=== PATIENT | male | born 1960 | race Hispanic/Latino ===

== ENCOUNTER 2016-06-12 17:44 | Emergency (ER) | payer SELFPAY ==
[~2016-06-12] VITALS: Ht 172.7 cm; Wt 77.3 kg
[2016-06-12 19:20] LABS: HEMOGLOBIN 13.8 g/dl (14.0-18.0); IMMATURE GRANULOCYTES 0.6 % (0.0-1.0); MEAN CELL VOLUME 90.7 fL CALC (80.0-100.0); MEAN CORPUSCULAR HGB 32.9 pG CALC (26.0-32.0); MEAN CORPUSCULAR HGB CONC 36.3 g/L CALC (32.0-36.0); NEUT# 7.4 thou/uL (1.82-7.42); RED BLOOD COUNT 4.19 mill/uL (4.70-6.10); RED CELL DISTRI WIDTH 11.7 % (11.5-15.5)
[2016-06-12 19:37] LABS: URINE BILIRUBIN - DIPSTICK NEGATIVE (NEGATIVE); URINE BLOOD DIPSTICK SMALL (NEGATIVE); URINE CLARITY CLEAR; URINE COLOR YELLOW; URINE GLUCOSE - DIPSTICK >=1000 mg/dL (NEGATIVE); URINE KETONE NEGATIVE (NEGATIVE); URINE LEUK ESTERASE NEGATIVE (NEGATIVE); URINE NITRITE - DIPSTICK NEGATIVE (Negative); URINE PROTEIN - DIPSTICK 100 mg/dL (NEG-TRACE); URINE UROBILINOGEN - DIPSTICK 0.2 E.U./dL (0.2)
[2016-06-12 19:38] LABS: ALBUMIN 3.7 g/dL (3.2-5.0); ALKALINE PHOSPHATASE 165 u/l (38-126); ANION GAP 15 (6-22 (CALC)); BILIRUBIN, TOTAL 0.6 mg/dL (0.0-1.4); BUN 25 mg/dL (9-20); BUN/CREATININE RATIO 23 (12-20 (CALC)); CARBON DIOXIDE 26 mmol/l (22-30); CHLORIDE 96 mmol/l (95-108); CREATININE 1.1 mg/dL (0.7-1.3); GFR > 60 ML/MIN (>=60 (CALC)); GFR FOR AFR.AMER. > 60 ML/MIN (>=60 (CALC)); GLUCOSE 337 mg/dL (75-110); POTASSIUM 4.5 mmol/l (3.5-5.1); SGOT/AST 70 u/l (17-59); SGPT/ALT 96 u/l (21-72); SODIUM 132 mmol/l (137-146); TOTAL PROTEIN 7.8 g/dL (6.3-8.2)
[2016-06-12 19:48] LABS: URINE WBC 0-2 WBC/hpf (0-5)
[2016-06-12 20:54] VITALS: BP 209/128
== END 2016-06-12 20:55 | disposition short-term general hospital (02) | DRG 868 ==
LOC: ED 17:44
PROVIDERS: Emergency Medicine
PROC: 0H9FXZZ Drainage of Right Hand Skin, External Approach (ICD-10-PCS; principal; 2016-06-12)
DX: A48.0 Gas gangrene (principal); L02.511 Cutaneous abscess of right hand; B95.7 Other staphylococcus as the cause of diseases classified elsewhere; R22.31 Localized swelling, mass and lump, right upper limb; R50.9 Fever, unspecified
CPT/HCPCS: J2540

== ENCOUNTER 2017-04-26 19:14 | Inpatient (IN) | payer SELFPAY ==
[~2017-04-26] VITALS: Ht 172.7 cm; Wt 77.0 kg
--- NOTE | 2017-04-26 19:33 | NUR ---
LABETALOL 10 MG IVP PER MD ORDER. BP 222/113 HR 89.
--- NOTE | 2017-04-26 19:36 | NUR ---
PT BROUGHT STRAIGHT BACK. AMBULATED. MD NOTIFIED OF PTS STATUS. MD VELA GAVE A VERBAL ORDER FOR 20MG LABETOL FOR HTN. EKG COMPLETED AND SHOWN TO MD. PT A&Ox4. NO DROP IN FACE. EQUAL STRENGTH BILATEALLY UPPER & LOWER.
--- NOTE | 2017-04-26 19:40 | NUR ---
BP NOW 161/80.
--- NOTE | 2017-04-26 19:50 | NUR ---
PT RESTING. A/O ANUM. NABIL. DENIES ANY NUMBNESS/TINGLING AT THIS TIME. PT STATES THAT IT STARTED AROUND 9 AM. PT EDUCATED ON IMMEDIATE TREATMENT OF STROKE S/S FOR FURTURE EVENTS.
[2017-04-26 20:43] LABS: HEMATOCRIT 41.9 % (39.0-50.0); HEMOGLOBIN 15.4 g/dl (14.0-18.0); IMMATURE GRANULOCYTES 0.5 % (0.0-1.0); MEAN CELL VOLUME 90.3 fL CALC (80.0-100.0); MEAN CORPUSCULAR HGB 33.2 pG CALC (26.0-32.0); MEAN CORPUSCULAR HGB CONC 36.8 g/L CALC (32.0-36.0); NEUT# 3.94 thou/uL (1.82-7.42); RED BLOOD COUNT 4.64 mill/uL (4.70-6.10)
[2017-04-26 20:50] LABS: ACT PARTIAL THROMBO TIME 25.6 SECONDS (20.0-32.5); INTERNATIONAL NORMALIZED RATIO 0.9 RATIO (0.7-1.3); PROTHROMBIN TIME 9.8 SECONDS (9.0-12.5)
[2017-04-26 21:09] LABS: ALBUMIN 3.7 g/dL (3.2-5.0); BILIRUBIN, TOTAL 0.3 mg/dL (0.0-1.4); CREATININE 1.6 mg/dL (0.7-1.3); TOTAL PROTEIN 7.1 g/dL (6.3-8.2)
--- NOTE | 2017-04-26 21:25 | NUR ---
TO CT VIA STRETCHER WITH PAYMENT ANALYST.
--- NOTE | 2017-04-26 21:47 | NUR ---
PT RETURNED FROM CT VIA STRETCHER. NO C/O.
--- NOTE | 2017-04-26 22:09 | NUR ---
AT BEDSIDE TO DISCUSS RESULTS.
--- NOTE | 2017-04-26 23:22 | NUR ---
BLOOD SUGAR NOW 381
--- NOTE | 2017-04-26 23:34 | NUR ---
DR OVALLE NOTIFIED OF BLOOD SUGAR. REPORT CALLED TO FLOOR. BROWN
[2017-04-27] VITALS (10 sets, daily range): BP systolic 127–170; BP diastolic 71–100
--- NOTE | 2017-04-27 00:10 | NUR ---
PT TRANSPORTED FROM ER VIA STRETCHER TO ROOM IN STABLE CONDITION. TRANSPORTED BY MELITON CORRIGAN. PT AMBULATED TO ROOM FROM [facility] IN [facility]. WT AND VS OBTAINED, ASSESSMENT CHARTED. PT DESCRIBES COMING INTO ER THIS MORNING WITH NUMBNESS TO LEFT SIDE. STATES SYMPTOMS HAVE SINCE SUBSIDED. HUMAN INTELLIGENCE ON. PT ORIENTED TO ROOM AND CALL LIGHT. EXPLAINED NEEDED URINE SAMPLE. WATER AND ICE GIVEN. BED IN LOW POSITION, CALL LIGHT IN REACH. WILL CONTINUE TO MONITOR.
--- NOTE | 2017-04-27 00:18 | NUR ---
TO FLOOR WITHOUT INCIDENT. PT REMAINS ALERT/ORIENTED. FERRER. GRASP EQUAL AND STRONG.
--- NOTE | 2017-04-27 01:10 | NUR ---
ACCOUNTING METHODS ANALYST CALLED TO SAY PT OFF TELE. WENT TO CHECK ON PATIENT AND FOUND TELE ON BED AND PATIENT HAD GOTTEN IN SHOWER. CALL TO ACCOUNTING METHODS ANALYST TO INFORM.
--- NOTE | 2017-04-27 01:30 | NUR ---
PT OUT OF SHOWER. HEAD OF DESIGN REAPPLIED, IV LOOSE FROM SHOWER, CLEAN DRY TEGADERM APPLIED. IV FLUSHED WELL AND BLOOD RETURN NOTED.
[2017-04-27 01:32] LABS: URINE BILIRUBIN - DIPSTICK NEGATIVE (NEGATIVE); URINE BLOOD DIPSTICK NEGATIVE (NEGATIVE); URINE COLOR YELLOW; URINE GLUCOSE - DIPSTICK >=1000 mg/dL (NEGATIVE); URINE KETONE TRACE mg/dL (NEGATIVE); URINE LEUK ESTERASE NEGATIVE (NEGATIVE); URINE NITRITE - DIPSTICK NEGATIVE (Negative); URINE PH 5.5 (4.5-8.0); URINE PROTEIN - DIPSTICK >=300 mg/dL (NEG-TRACE); URINE SPECIFIC GRAVITY >=1.030; URINE UROBILINOGEN - DIPSTICK 0.2 E.U./dL (0.2)
[2017-04-27 01:33] LABS: URINE CLARITY CLEAR
[2017-04-27 01:45] LABS: URINE BACTERIA FEW hpf; URINE COARSE GRANULAR CAST FEW lpf; URINE RBC 0-2 RBC/hpf (0-5); URINE WBC 0-2 WBC/hpf (0-5)
--- NOTE | 2017-04-27 02:00 | NUR ---
PT TURNED OFF LIGHTS AND ROLLED ONTO SIDE TO GET REST. CALL LIGHT IN REACH, ADVISED TO CALL IF NEEDED. WILL CONTINUE TO MONITOR.
--- NOTE | 2017-04-27 04:30 | NUR ---
PT LAYING DOWN, EYES OPEN EASILY UPON ENTRANCE TO ROOM. DENIES PAIN OR NEEDS AT THIS TIME. CALL LIGHT IN REACH.
--- NOTE | 2017-04-27 08:00 | NUR ---
PT IN HIGH FELDMAN POSITION; TOLERATED BREAKFAST WELL; PT DENIES PAIN; TELE MONITOR IN PLACE, SR 77; PT DENIES PAIN; PT C/O NUMBNESS TO COMPLETE LEFT SIDE OF BODY, NO CHANGE IN NEURO ASSESSMENT; PT ORIENTED TO ROOM AND CALL SYSTEM; CALL AGUAYO WITHIN REACH; WILL CONTINUE TO MONITOR.
[2017-04-27 14:39] LABS: HEMATOCRIT 37.7 % (39.0-50.0); HEMOGLOBIN 13.9 g/dl (14.0-18.0); IMMATURE GRANULOCYTES 0.4 % (0.0-1.0); MEAN CORPUSCULAR HGB 33.2 pG CALC (26.0-32.0); MEAN CORPUSCULAR HGB CONC 36.9 g/L CALC (32.0-36.0); NEUT# 2.97 thou/uL (1.82-7.42); RED BLOOD COUNT 4.19 mill/uL (4.70-6.10); RED CELL DISTRI WIDTH 11.9 % (11.5-15.5)
--- NOTE | 2017-04-27 14:43 | NUR ---
DR. LEONG IN TO SEE PT; PLAN OF CARE DISCUSSED
[2017-04-27 15:09] LABS: ANION GAP 13 (6-22 (CALC)); BUN 18 mg/dL (9-20); BUN/CREATININE RATIO 17 (12-20 (CALC)); CARBON DIOXIDE 24 mmol/l (22-30); CHLORIDE 102 mmol/l (95-108); CREATININE 1.1 mg/dL (0.7-1.3); GFR > 60 ML/MIN (>=60 (CALC)); GFR FOR AFR.AMER. > 60 ML/MIN (>=60 (CALC)); POTASSIUM 4.7 mmol/l (3.5-5.1); SODIUM 134 mmol/l (137-146)
--- NOTE | 2017-04-27 15:45 | NUR ---
PT WATCHING TV; IVF STARTED PER ORDERS; BP 165/96, MEDICATED WITH HYDRALAZINE 10 MG IV PER MD ORDER; CALL AGUAYO WITHIN REACH; WILL CONTINUE TO MONITOR.
--- NOTE | 2017-04-27 16:17 | NUR ---
DR. LEONG NOTIFIED OF CT BRAIN RESULTS
--- NOTE | 2017-04-27 17:55 | NUR ---
PT C/O MANUAL BP 178/100; MD NOTIFIED; PT MEDICATED ORDERED; CALL AGUAYO WITHIN REACH; WILL CONTINUE TO MONITOR.
--- NOTE | 2017-04-27 19:40 | NUR ---
REPORT RECIEVED; PT RESTING IN BED. PT DENIES ANY PAIN OR DISCOMFORT. IV RAC PATENT. SAFETY PRECAUTIONS REINFORCED. CALL LIGHT WITHIN REACH.
--- NOTE | 2017-04-27 20:10 | NUR ---
PT ALERT AND ORIENTED. HAND GRASP EQUAL;STRONG BILAT. RESP EVEN AND UNLABORED; NO DISTRESS NOTED. TELE IN PLACE. ABD SOFT; ACTIVE BOWEL SOUNDS. PEDAL PULSES PALPATED BILAT. IV RAC PATENT; NO REDNESS OR EDEMA NOTED. SAFETY PRECAUTIONS REINFROCED. FREQUENT ROUNDS MADE. PT DENIES ANY PAIN OR DISCOMFORT. CALL LIGHT WITHIN REACH.
--- NOTE | 2017-04-27 20:25 | NUR ---
DR NOTIFIED OF BP; 170/100, HR; 81. NEW ORDER RECIEVED.
--- NOTE | 2017-04-27 20:48 | NUR ---
ORDER CLARIFICATION WITH DR; NEW ORDER RECIEVED.
[2017-04-28] VITALS (9 sets, daily range): BP systolic 139–176; BP diastolic 75–107
--- NOTE | 2017-04-28 00:30 | NUR ---
PT WOKE FOR VITALS. RESP EVEN AND UNLABORED. PT DENIES ANY PAIN OR DISCOMFORT. TELE IN PLACE. NO DISTRESS NOTED. IV PATENT. CALL LIGHT WITHIN REACH.
--- NOTE | 2017-04-28 04:05 | NUR ---
RESP EVEN AND UNLABORED; NO DISTRESS NOTED. TELE IN PLACE. IV PATENT. ASSESSMENT UNCHANGED. CALL LIGHT WITHIN REACH.
[2017-04-28 05:01] LABS: HEMATOCRIT 37.9 % (39.0-50.0); HEMOGLOBIN 13.8 g/dl (14.0-18.0); IMMATURE GRANULOCYTES 0.5 % (0.0-1.0); MEAN CELL VOLUME 90.2 fL CALC (80.0-100.0); MEAN CORPUSCULAR HGB 32.9 pG CALC (26.0-32.0); MEAN CORPUSCULAR HGB CONC 36.4 g/L CALC (32.0-36.0); NEUT# 3.68 thou/uL (1.82-7.42); RED BLOOD COUNT 4.2 mill/uL (4.70-6.10)
[2017-04-28 05:34] LABS: ANION GAP 12 (6-22 (CALC)); BUN 15 mg/dL (9-20); BUN/CREATININE RATIO 16 (12-20 (CALC)); CARBON DIOXIDE 24 mmol/l (22-30); CHLORIDE 106 mmol/l (95-108); GFR > 60 ML/MIN (>=60 (CALC)); GFR FOR AFR.AMER. > 60 ML/MIN (>=60 (CALC)); POTASSIUM 4.2 mmol/l (3.5-5.1); SODIUM 138 mmol/l (137-146)
--- NOTE | 2017-04-28 11:37 | NUR ---
DR. LEONG IN TO SEE PT; PLAN OF CARE DISCUSSED
--- NOTE | 2017-04-28 16:53 | NUR ---
PT WATCHING TV; NO COMPLAINTS VOICED; TELE MONITOR IN PLACE; CALL AGUAYO WITHIN REACH; WILL CONTINUE TO MONITOR.
--- NOTE | 2017-04-28 20:00 | NUR ---
BESIDE REPORT RECEIVED FROM MELITON BRENNER. PT SITTING UP IN BED WATCHING TV. ALERT AND ORIENTED. DENIES PAIN CURRENTLY. RESPIRATIONS EVEN AND UNLABORED ON ROOM AIR. TELE IN PLACE. INITIAL BLOOD PRESSURE THIS SHIFT IS 176/107. APRESOLINE GIVEN PER PRN ORDER WITH F/U BP OF 168/96-90. WILL CONTINUE TO MONITOR. PLAN OF CARE DISCUSSED. PT ENCOURAGED TO VERBALIZE CONCERS. STATES UNDERSTANDING. SAFETY MEASURES IN PLACE. CALL LIGHT WITHIN REACH.
--- NOTE | 2017-04-28 23:47 | NUR ---
BLOOD PRESSURE INCREASED AGAIN TO 182/100. NEW ORDER FOR APRESOLINE NOW AND INCREASE FREQUENCY TO EVERY 4 HOURS PRN. MIDNIGHT BP IS 139/75. PT RESTING IN BED COMFORTABLY. RESTORIL GIVEN AT HS. PT HAS NO REQUESTS AT THIS TIME. SAFETY MEASURES IN PLACE. CALL LIGHT WITHIN REACH.
[2017-04-29] VITALS (9 sets, daily range): BP systolic 147–182; BP diastolic 78–101
--- NOTE | 2017-04-29 05:05 | NUR ---
BLOOD PRESSURE REMAINS STABLE SINCE LAST BP MEDICATION. DENIES PAIN. INDEPEDENT IN ROOM. PT USES CALL LIGHT PRN FOR ASSISTANCE. HAS NO REQUESTS AT THIS TIME. CALL LIGHT WITHIN REACH.
--- NOTE | 2017-04-29 07:00 | NUR ---
RECEIVED BEDSIDE REPORT FROM BARRINGTON COELHO. RESTING IN HIGH FOWLERS WATCHING TV. RESPS EVEN AND UNLABORED ON ROOM AIR, TELE MONITOR IN PLACE. #22 LFA INFUSING WIHTOUT DIFFICULTY, SITE APPEARS HEALTHY. DENIES PAIN OR DISCOMFORT. PLAN OF CARE DISCUSSED. SAFETY PRECAUTIONS REINFORCED. BED IN LOWEST POSITION WITH WHEELS LOCKED. CALL LIGHT WITHIN REACH. ENCOURAGED PT TO CALL FOR ANY NEEDS.
--- NOTE | 2017-04-29 08:30 | NUR ---
PATIENT IS ALERT AND ORIENTED X3. PUPILS ARE BRISK. FACE SYMMETRICAL. HEART SOUNDS AND RHYTHM ARE REGULAR. BOWEL SOUNDS ARE ACTIVE. RADIAL PULSES ARE STRONG. CAPILLARY REFILL <3. PEDAL PULSES ARE STRONG. PATIENT STATES HE HAS NUMBNESS ON LEFT SIDE, TACTILE SENSATION SLIGHTLY IMPAIRED TO LEFT SIDE FACE, ARM AND LEGS UPON ASSESSMENT. PATIENT HAS STRONG SHIPPING SPECIALIST BILATERAL AND ABLE TO LIFT BOTH LEGS AGAINST FORCE.
--- NOTE | 2017-04-29 09:00 | NUR ---
TO RADIOLOGY IN STABLE CONDITION VIA WHEELCHAIR ACCOMPANIED BY VOLUNTEER.
--- NOTE | 2017-04-29 10:00 | NUR ---
RETURNED FROM RADIOLOGY VIA WHEELCHAIR ACCOMPANIED BY VOLUNTEER.
[2017-04-29 10:52] LABS: HEMATOCRIT 40.1 % (39.0-50.0); HEMOGLOBIN 14.7 g/dl (14.0-18.0); IMMATURE GRANULOCYTES 0.3 % (0.0-1.0); MEAN CELL VOLUME 89.9 fL CALC (80.0-100.0); MEAN CORPUSCULAR HGB CONC 36.7 g/L CALC (32.0-36.0); NEUT# 4.11 thou/uL (1.82-7.42); RED BLOOD COUNT 4.46 mill/uL (4.70-6.10)
[2017-04-29 11:20] LABS: ANION GAP 13 (6-22 (CALC)); BUN 12 mg/dL (9-20); BUN/CREATININE RATIO 14 (12-20 (CALC)); CARBON DIOXIDE 22 mmol/l (22-30); CHLORIDE 105 mmol/l (95-108); CREATININE 0.9 mg/dL (0.7-1.3); GFR > 60 ML/MIN (>=60 (CALC)); GFR FOR AFR.AMER. > 60 ML/MIN (>=60 (CALC)); MAGNESIUM 1.6 mg/dL (1.6-2.3); POTASSIUM 4.4 mmol/l (3.5-5.1); SODIUM 136 mmol/l (137-146)
--- NOTE | 2017-04-29 12:50 | NUR ---
DR ENGLE IN WITH PT, NEW ORDERS RECEIVED.
--- NOTE | 2017-04-29 13:45 | NUR ---
AMBULATING IN HALLWAY WITH STEADY GAIT. TOLERATING ACTIVITY WITHOUT DIFFICULTY.
--- NOTE | 2017-04-29 16:05 | NUR ---
AMBULATING IN HALLWAY ACCOMPANIED BY PHYSICAL THERAPY.
--- NOTE | 2017-04-29 16:47 | NUR ---
RESTING IN SEMI FOWLERS, RESPS EVEN AND UNLABORED ON ROOM AIR, TELE MONITOR IN PLACE. DENIES PAIN OR DISCOMFORT. MEDICATED WITH HYDRALAZINE IVP FOR BP 182/98 WITH HEART RATE 90. CALL STACI BREWSTER. WILL CONTINUE TO MONITOR.
--- NOTE | 2017-04-29 18:17 | NUR ---
TO ULTRASOUND IN STABLE CONDITION VIA WHEELCHAIR ACCOMPANIED BY ISAAC HENDRICKSON.
--- NOTE | 2017-04-29 19:06 | NUR ---
RETURNED FROM RADIOLOGY VIA WHEELCHAIR ACCOMPANIED BY CIARA HENDRICKSON. AMBULATED TO BED WITH STEADY GAIT. RESPS EVEN AND UNLABORED ON ROOM AIR, TELE MONITOR IN PLACE. BED IN LOWEST POSITION WITH WHEELS LOCKED. CALL LIGHT WITHIN REACH. WILL CONTINUE TO MONITOR.
--- NOTE | 2017-04-29 19:20 | NUR ---
REPORT RECEIVED FROM MELITON KIDD;PT RETURNING FROM ECHO AT THIS TIME;PT TRANFERRED FROM WC WITH STEADY GAIT;INTRODUCED SELF TO PT AND POC DISCUSSED;PT ENCOURAGED TO CALL FOR ASSISTANCE IF NEEDED;CALL LIGHT IN REACH;WILL CONTINUE TO MONITOR
--- NOTE | 2017-04-29 21:20 | NUR ---
PT RESTING IN BED WATCHING TV;A&O X3;ASSESSMENT COMPLETED;RESPIRATIONS EVEN AND UNLABORED ON RA;CLEAR LUNG SOUNDS;ABDOMEN SOFT ON PALPATION;STRONG PEDAL PULSES;SKIN INTACT;#22G TO LEFT FOREARM FLUSHED AND PATENT,SITE APPAERS HEALTHY;SOME LEFT SIDED WEAKNESS PRESENT R/T HX OF STROKE;PERRLA;PRN RESTORIL 15MG TO BE GIVEN PER PT REQUEST;TELE MONITOR IN PLACE;SAFETY PRECAUTIONS REINFORCED WITH BED IN THE LOWEST POSITION;CALL LIGHT IN REACH;WILL CONTINUE TO MONITOR
--- NOTE | 2017-04-29 21:40 | NUR ---
HYDRALAZINE 10MG IVP ADMINISTERED BY MELITON FRAZIER FOR A MANUAL BP OF 172/96 HR 86,WILL MONITOR FOR EFFECTIVENESS
--- NOTE | 2017-04-30 00:10 | NUR ---
PT APPEARS TO BE SLEEPING IN SUPINE POSITION;WOKE PT TO ADMINISTER SCHEDULED MEDICATION;PT VOICES NO COMPLAINTS OF PAIN;TELE MONITOR IN PLACE;SCHEDULED LOPRESSOR GIVEN AT THIS TIME;BP 152/87 HR 99;WILL CONTINUE TO MONITOR
[2017-04-30 00:56] VITALS: BP 152/87
--- NOTE | 2017-04-30 04:55 | NUR ---
PT APPEARS TO BE SLEEPING IN SUPINE POSITION WITH EYES CLOSED,WAKES TO VERBAL STIMULI;VS OBTAINED;CURRENT BP 139/84 HR 79;TELE MONITOR IN PLACE;RESPIRATIONS EVEN AND UNLABORED;PT DENIES ANY NEEDS AT THIS TIME;CALL LIGHT IN REACH;WILL CONTINUE TO MONITOR
[2017-04-30 04:56] VITALS: BP 139/84
[2017-04-30 05:46] LABS: HEMATOCRIT 39.7 % (39.0-50.0); HEMOGLOBIN 14.5 g/dl (14.0-18.0); IMMATURE GRANULOCYTES 0.4 % (0.0-1.0); MEAN CELL VOLUME 90.2 fL CALC (80.0-100.0); MEAN CORPUSCULAR HGB CONC 36.5 g/L CALC (32.0-36.0); NEUT# 4.18 thou/uL (1.82-7.42); RED BLOOD COUNT 4.4 mill/uL (4.70-6.10); RED CELL DISTRI WIDTH 11.9 % (11.5-15.5)
[2017-04-30 06:02] LABS: ANION GAP 14 (6-22 (CALC)); BUN 16 mg/dL (9-20); BUN/CREATININE RATIO 16 (12-20 (CALC)); CALCULATED LDLCHOLESTEROL 41 mg/dL (62-129 (CALC)); CARBON DIOXIDE 23 mmol/l (22-30); CHLORIDE 105 mmol/l (95-108); CHOLESTEROL HDL RATIO 2.5 (<4.4 (CALC)); GFR > 60 ML/MIN (>=60 (CALC)); GFR FOR AFR.AMER. > 60 ML/MIN (>=60 (CALC)); HDL CHOLESTEROL 46 mg/dL (>=40); MAGNESIUM 1.6 mg/dL (1.6-2.3); POTASSIUM 4.2 mmol/l (3.5-5.1); SODIUM 138 mmol/l (137-146); TOTAL CHOLESTEROL 116 mg/dl (0-199); TOTAL TRIGLYCERIDES 144 mg/dl (30-149); VLDL CHOLESTROL 29 mg/dl (8-62 (CALC))
--- NOTE | 2017-04-30 07:00 | NUR ---
RECEIVED BEDSIDE REPORT FROM RUBINA CHEATHAM. RESTING IN SEMI FOWLERS WATCHING TV. RESPS EVEN AND UNLABORED ON ROOM AIR, TELE MONITOR IN PLACE. DENIES PAIN OR DISCOMFORT. PLAN OF CARE DISCUSSED. SAFETY PRECAUTIONS REINFORCED. BED IN LOWEST POSITION WITH WHEELS LOCKED. CALL LIGHT WITHIN REACH. ENCOURAGED PT TO CALL FOR ANY NEEDS.
[2017-04-30 07:49] VITALS: BP 172/94
[2017-04-30 07:59] VITALS: BP 172/94
--- NOTE | 2017-04-30 09:00 | NUR ---
DR ENGLE IN WITH PT, NEW ORDERS RECEIVED.
[2017-04-30] MEDS ORDERED: METFORMIN1000 MG PO (09:35)
[2017-04-30] MEDS ORDERED: LOPRESSOR25 MG PO (09:35)
[2017-04-30] MEDS ORDERED: ZESTRIL40 MG PO (09:35)
[2017-04-30] MEDS ORDERED: LIPITOR80 M1 PO (09:35)
[2017-04-30] MEDS ORDERED: ADLT ASA LOW81 MG PO (09:35)
[2017-04-30] MEDS ORDERED: AMLODIPINE BESYL5 MG PO (09:35)
[2017-04-30] MEDS ORDERED: AMARYL2 MG PO (09:40)
--- NOTE | 2017-04-30 12:00 | NUR ---
RESTING IN SEMI FOWLERS, RESPS EVEN AND UNLABORED ON ROOM AIR, TELE MONITOR IN PLACE. DENIES PAIN OR DISCOMFORT. CALL LIGHT WITHIN REACH. WILL CONTINUE TO MONITOR.
--- NOTE | 2017-04-30 13:05 | NUR ---
IV site discontinued, cath intact. No edema , no redness, voices no discomfort.
--- NOTE | 2017-04-30 13:10 | NUR ---
Discharge instructions given. Patient verbalizes understanding of same. Discharged in stable condition via Wheelchair to Home with family. All belongings sent with pt.
== END 2017-04-30 13:11 | disposition home or self-care (01) | DRG 69 ==
LOC: ED 19:14 → ED-I 22:54 → ED 23:13 → MS2 23:14
PROVIDERS: Emergency Medicine; Nurse Practitioner Family; ADMIT Internal Medicine; ATTEND Internal Medicine
DX: G45.9 Transient cerebral ischemic attack, unspecified (principal); E11.65 Type 2 diabetes mellitus with hyperglycemia; I69.954 Hemiplegia and hemiparesis following unspecified cerebrovascular disease affecting left non-dominant side; F17.210 Nicotine dependence, cigarettes, uncomplicated; I16.0 Hypertensive urgency; I10 Essential (primary) hypertension; Z91.14 Patient's other noncompliance with medication regimen

== ENCOUNTER 2017-06-25 06:59 | Emergency (ER) | payer SELFPAY ==
[~2017-06-25] VITALS: Ht 172.7 cm; Wt 82.0 kg
[~2017-06-25 06:59] MED LIST: ADLT ASA LOW81 MG PO; AMARYL2 MG PO; AMLODIPINE BESYL5 MG PO; LIPITOR80 M1 PO; LOPRESSOR25 MG PO; METFORMIN1000 MG PO; ZESTRIL40 MG PO
[2017-06-25 07:44] LABS: HEMATOCRIT 42.1 % (39.0-50.0); IMMATURE GRANULOCYTES 0.5 % (0.0-1.0); MEAN CELL VOLUME 90.1 fL CALC (80.0-100.0); MEAN CORPUSCULAR HGB 32.1 pG CALC (26.0-32.0); MEAN CORPUSCULAR HGB CONC 35.6 g/L CALC (32.0-36.0); NEUT# 7.16 thou/uL (1.82-7.42); RED BLOOD COUNT 4.67 mill/uL (4.70-6.10); RED CELL DISTRI WIDTH 12.7 % (11.5-15.5)
[2017-06-25 08:05] LABS: ALBUMIN 3.7 g/dL (3.2-5.0); ALKALINE PHOSPHATASE 86 u/l (38-126); ANION GAP 17 (6-22 (CALC)); BILIRUBIN, TOTAL 0.6 mg/dL (0.0-1.4); BUN 21 mg/dL (9-20); BUN/CREATININE RATIO 19 (12-20 (CALC)); CARBON DIOXIDE 24 mmol/l (22-30); CHLORIDE 104 mmol/l (95-108); CREATININE 1.1 mg/dL (0.7-1.3); GFR > 60 ML/MIN (>=60 (CALC)); GFR FOR AFR.AMER. > 60 ML/MIN (>=60 (CALC)); SGOT/AST 54 u/l (17-59); SGPT/ALT 77 u/l (21-72); SODIUM 141 mmol/l (137-146); TOTAL PROTEIN 7.6 g/dL (6.3-8.2)
[2017-06-25 08:09] LABS: INTERNATIONAL NORMALIZED RATIO 0.9 RATIO (0.7-1.3); PROTHROMBIN TIME 10.3 SECONDS (9.0-12.5)
[2017-06-25 08:15] LABS: MYOGLOBIN 46 ng/mL (0 - 121)
[2017-06-25 09:25] VITALS: BP 161/87
== END 2017-06-25 09:25 | disposition short-term general hospital (02) | DRG 65 ==
LOC: ED 06:59
PROVIDERS: Emergency Medicine
DX: I63.9 Cerebral infarction, unspecified (principal); G81.94 Hemiplegia, unspecified affecting left nondominant side; I10 Essential (primary) hypertension; E11.9 Type 2 diabetes mellitus without complications; F17.210 Nicotine dependence, cigarettes, uncomplicated; H53.462 Homonymous bilateral field defects, left side; R29.810 Facial weakness; R29.702 NIHSS score 2; Z86.73 Personal history of transient ischemic attack (TIA), and cerebral infarction without residual deficits

== ENCOUNTER 2017-10-03 05:42 | Inpatient (IN) | payer OTHER ==
[~2017-10-03] VITALS: Ht 172.7 cm; Wt 73.8 kg
[2017-10-03] VITALS (10 sets, daily range): BP systolic 114–190; BP diastolic 66–93
[2017-10-03] MEDS ORDERED: LISINOPRIL20 M1 PO (06:15)
[2017-10-03] MEDS ORDERED: PLAVIX75 MG PO (06:17)
[2017-10-03] MEDS ORDERED: LIPITOR40 M1 PO (06:19)
[2017-10-03] MEDS ORDERED: METFORMIN500 MG PO (06:20)
[2017-10-03 06:37] LABS: HEMOGLOBIN 14.3 g/dl (14.0-18.0); IMMATURE GRANULOCYTES 0.6 % (0.0-5.0); MEAN CELL VOLUME 90.5 fL CALC (80.0-100.0); MEAN CORPUSCULAR HGB 32.4 pG CALC (26.0-32.0); MEAN CORPUSCULAR HGB CONC 35.8 g/L CALC (32.0-36.0); NEUT# 14.54 thou/uL (1.82-7.42); RED BLOOD COUNT 4.42 mill/uL (4.70-6.10); RED CELL DISTRI WIDTH 12.6 % (11.5-15.5); URINE BILIRUBIN - DIPSTICK NEGATIVE (NEGATIVE); URINE BLOOD DIPSTICK TRACE-INTACT (NEGATIVE); URINE COLOR YELLOW; URINE GLUCOSE - DIPSTICK 100 mg/dL (NEGATIVE); URINE KETONE NEGATIVE (NEGATIVE); URINE LEUK ESTERASE NEGATIVE (NEGATIVE); URINE NITRITE - DIPSTICK NEGATIVE (Negative); URINE PROTEIN - DIPSTICK >=300 mg/dL (NEG-TRACE); URINE SPECIFIC GRAVITY 1.025; URINE UROBILINOGEN - DIPSTICK 0.2 E.U./dL (0.2)
[2017-10-03 06:38] LABS: URINE CLARITY SL CLOUDY
[2017-10-03 06:46] LABS: ALBUMIN 4.4 g/dL (3.2-5.0); ALKALINE PHOSPHATASE 105 u/l (38-126); AMYLASE 89 u/l (30-110); ANION GAP 17 (6-22 (CALC)); BILIRUBIN, TOTAL 0.7 mg/dL (0.0-1.4); BUN 24 mg/dL (9-20); BUN/CREATININE RATIO 17 (12-20 (CALC)); CARBON DIOXIDE 25 mmol/l (22-30); CHLORIDE 100 mmol/l (95-108); CREATININE 1.4 mg/dL (0.7-1.3); GFR 53 ML/MIN (>=60 (CALC)); GFR FOR AFR.AMER. > 60 ML/MIN (>=60 (CALC)); LIPASE 83 u/l (23-300); POTASSIUM 4.5 mmol/l (3.5-5.1); SGOT/AST 51 u/l (17-59); SGPT/ALT 82 u/l (21-72); SODIUM 136 mmol/l (137-146); TOTAL PROTEIN 8.6 g/dL (6.3-8.2)
[2017-10-03 06:48] LABS: URINE FINE GRAN CAST FEW lpf; URINE MUCUS FEW hpf (NONE-FEW); URINE SQUAMOUS EPITHELIAL CELL FEW EPI/hpf (0-FEW)
[2017-10-04] VITALS: BP 122/70
[2017-10-04 07:09] LABS: IMMATURE GRANULOCYTES 0.4 % (0.0-5.0); MEAN CELL VOLUME 90.9 fL CALC (80.0-100.0); MEAN CORPUSCULAR HGB 32.9 pG CALC (26.0-32.0); MEAN CORPUSCULAR HGB CONC 36.2 g/L CALC (32.0-36.0); RED BLOOD COUNT 3.28 mill/uL (4.70-6.10); RED CELL DISTRI WIDTH 12.8 % (11.5-15.5)
[2017-10-04 07:26] LABS: ANION GAP 13 (6-22 (CALC)); BILIRUBIN, TOTAL 0.8 mg/dL (0.0-1.4); BUN 21 mg/dL (9-20); BUN/CREATININE RATIO 19 (12-20 (CALC)); CARBON DIOXIDE 20 mmol/l (22-30); CHLORIDE 109 mmol/l (95-108); CREATININE 1.1 mg/dL (0.7-1.3); GFR > 60 ML/MIN (>=60 (CALC)); GFR FOR AFR.AMER. > 60 ML/MIN (>=60 (CALC)); POTASSIUM 4.2 mmol/l (3.5-5.1); SGOT/AST 31 u/l (17-59); SGPT/ALT 52 u/l (21-72); SODIUM 137 mmol/l (137-146)
[2017-10-04 07:31] LABS: BAND 7 % (0-8); HEMATOCRIT 29.8 % (39.0-50.0); HEMOGLOBIN 10.8 g/dl (14.0-18.0); MANUAL DIFFERENTIAL YES; PLATELET COUNT 152 thou/uL (130-400)
[2017-10-04 07:32] LABS: ALBUMIN 2.7 g/dL (3.2-5.0); ALKALINE PHOSPHATASE 52 u/l (38-126); TOTAL PROTEIN 5.7 g/dL (6.3-8.2)
[2017-10-04 07:56] VITALS: BP 122/62
[2017-10-04 08:50] VITALS: BP 122/62
[2017-10-04] MEDS ORDERED: METRONIDAZOL500 MG PO (11:37)
[2017-10-04] MEDS ORDERED: CIPROFLOXACN500 MG PO (11:37)
== END 2017-10-04 14:09 | disposition home or self-care (01) | DRG 342 ==
LOC: ED 05:42 → ED-I 09:51 → ED 10:12 → MS2 10:13
PROVIDERS: Family Medicine; ADMIT Internal Medicine; ATTEND Internal Medicine
PROC: 0DTJ4ZZ Resection of Appendix, Percutaneous Endoscopic Approach (ICD-10-PCS; principal; 2017-10-03)
DX: K35.80 Unspecified acute appendicitis (principal); N17.9 Acute kidney failure, unspecified; E86.0 Dehydration; I10 Essential (primary) hypertension; E11.65 Type 2 diabetes mellitus with hyperglycemia; F10.11 Alcohol abuse, in remission; E83.42 Hypomagnesemia; F17.210 Nicotine dependence, cigarettes, uncomplicated; I69.398 Other sequelae of cerebral infarction; R26.89 Other abnormalities of gait and mobility; Z79.02 Long term (current) use of antithrombotics/antiplatelets
CPT/HCPCS: J2710; Q9967

== ENCOUNTER 2018-08-11 03:07 | Emergency (ER) | payer MEDICAID ==
[~2018-08-11] VITALS: Ht 172.7 cm; Wt 90.0 kg
[~2018-08-11 03:07] MED LIST changes: +CIPROFLOXACN500 MG PO; +LIPITOR40 M1 PO; +LISINOPRIL20 M1 PO; +METFORMIN500 MG PO; +METRONIDAZOL500 MG PO; +PLAVIX75 MG PO
[2018-08-11] MEDS ORDERED: FINASTERIDE5 MG PO (03:45)
[2018-08-11] MEDS ORDERED: GLIMEPIRIDE4 MG PO (03:46)
[2018-08-11] MEDS ORDERED: GABAPENTIN100 MG PO (03:56)
[2018-08-11] MEDS ORDERED: DOXAZOSIN4 MG PO (03:57)
[2018-08-11] MEDS ORDERED: LOSARTAN POTASS50 MG PO (03:58)
[2018-08-11] MEDS ORDERED: ASPIRIN LOW DOS81 M3 PO (03:59)
--- NOTE | 2018-08-11 04:09 | NUR ---
BREATHING TREATMENT GIVEN. BREATHING TECH. FOR GOOD DEPOSITION TO THE LUNGS.
[2018-08-11 04:10] LABS: ALBUMIN 2.7 g/dL (3.2-5.0); CREATININE 1.9 mg/dL (0.7-1.3); POTASSIUM 4.1 mmol/l (3.5-5.1)
[2018-08-11 04:13] LABS: HEMATOCRIT 34.9 % (39.0-50.0); HEMOGLOBIN 12.4 g/dl (14.0-18.0); IMMATURE GRANULOCYTES 0.7 % (0.0-5.0); MEAN CELL VOLUME 92.1 fL CALC (80.0-100.0); MEAN CORPUSCULAR HGB 32.7 pG CALC (26.0-32.0); MEAN CORPUSCULAR HGB CONC 35.5 g/L CALC (32.0-36.0); NEUT# 4.3 thou/uL (1.82-7.42); RED BLOOD COUNT 3.79 mill/uL (4.70-6.10); RED CELL DISTRI WIDTH 13.6 % (11.5-15.5)
[2018-08-11 04:15] LABS: BILIRUBIN, TOTAL 0.2 mg/dL (0.0-1.4)
[2018-08-11 04:38] LABS: URINE BILIRUBIN - DIPSTICK NEGATIVE (NEGATIVE); URINE BLOOD DIPSTICK SMALL (NEGATIVE); URINE COLOR YELLOW; URINE GLUCOSE - DIPSTICK 250 mg/dL (NEGATIVE); URINE KETONE NEGATIVE (NEGATIVE); URINE LEUK ESTERASE NEGATIVE (NEGATIVE); URINE NITRITE - DIPSTICK NEGATIVE (Negative); URINE PROTEIN - DIPSTICK >=300 mg/dL (NEG-TRACE); URINE SPECIFIC GRAVITY 1.015; URINE UROBILINOGEN - DIPSTICK 0.2 E.U./dL (0.2)
[2018-08-11 04:41] LABS: D-DIMER 1.73 mg/L (0.19-0.60); INTERNATIONAL NORMALIZED RATIO 0.9 RATIO (0.7-1.3); PROTHROMBIN TIME 9.4 SECONDS (9.0-12.5)
[2018-08-11 04:52] LABS: URINE SQUAMOUS EPITHELIAL CELL FEW EPI/hpf (0-FEW)
[2018-08-11 05:44] VITALS: BP 168/95
== END 2018-08-11 05:44 | disposition short-term general hospital (02) ==
LOC: ED 03:07
PROVIDERS: Family Medicine
DX: I16.1 Hypertensive emergency (principal); I10 Essential (primary) hypertension; R74.8 Abnormal levels of other serum enzymes; J81.1 Chronic pulmonary edema; R79.89 Other specified abnormal findings of blood chemistry; E11.9 Type 2 diabetes mellitus without complications; F17.210 Nicotine dependence, cigarettes, uncomplicated; Z86.73 Personal history of transient ischemic attack (TIA), and cerebral infarction without residual deficits

== ENCOUNTER 2018-12-27 21:30 | Emergency (ER) | payer OTHER ==
[~2018-12-27] VITALS: Ht 172.7 cm; Wt 81.0 kg
[~2018-12-27 21:30] MED LIST changes: +ASPIRIN LOW DOS81 M3 PO; +DOXAZOSIN4 MG PO; +FINASTERIDE5 MG PO; +GABAPENTIN100 MG PO; +GLIMEPIRIDE4 MG PO; +LOSARTAN POTASS50 MG PO
[2018-12-27 22:08] LABS: HEMATOCRIT 28.6 % (39.0-50.0); HEMOGLOBIN 10.4 g/dl (14.0-18.0); IMMATURE GRANULOCYTES 0.6 % (0.0-5.0); MEAN CELL VOLUME 86.4 fL CALC (80.0-100.0); MEAN CORPUSCULAR HGB 31.4 pG CALC (26.0-32.0); MEAN CORPUSCULAR HGB CONC 36.4 g/L CALC (32.0-36.0); NEUT# 5.15 thou/uL (1.82-7.42); RED BLOOD COUNT 3.31 mill/uL (4.70-6.10); RED CELL DISTRI WIDTH 13.2 % (11.5-15.5)
[2018-12-27 22:22] LABS: ALBUMIN 2.2 g/dL (3.2-5.0); CREATININE 3.6 mg/dL (0.7-1.3); POTASSIUM 3.3 mmol/l (3.5-5.1); TOTAL PROTEIN 5.4 g/dL (6.3-8.2)
[2018-12-27 22:25] LABS: BILIRUBIN, TOTAL 0.3 mg/dL (0.0-1.4); D-DIMER 1.72 mg/L (0.19-0.60)
[2018-12-27 22:54] LABS: TSH, 3RD GENERATION 1.52 uIU/mL (0.47 - 4.68)
[2018-12-28] MEDS ORDERED: TAMSULOSIN HCL0.4 MG PO (00:07)
[2018-12-28] MEDS ORDERED: VITAMIN D50000 UNIT PO (00:08)
[2018-12-28] MEDS ORDERED: SPIRONOLACTONE25 MG PO (00:09)
[2018-12-28] MEDS ORDERED: NORVASC PO (00:10)
[2018-12-28] MEDS ORDERED: CLONIDINE0.1 MG PO (00:10)
[2018-12-28] MEDS ORDERED: FUROSEMIDE20 MG PO (00:11)
[2018-12-28 00:46] LABS: URINE BILIRUBIN - DIPSTICK NEGATIVE (NEGATIVE); URINE BLOOD DIPSTICK LARGE (NEGATIVE); URINE COLOR YELLOW; URINE GLUCOSE - DIPSTICK >=1000 mg/dL (NEGATIVE); URINE KETONE NEGATIVE (NEGATIVE); URINE LEUK ESTERASE NEGATIVE (NEGATIVE); URINE NITRITE - DIPSTICK NEGATIVE (Negative); URINE PROTEIN - DIPSTICK >=300 mg/dL (NEG-TRACE); URINE UROBILINOGEN - DIPSTICK 0.2 E.U./dL (0.2)
[2018-12-28 00:50] LABS: BARBITURATES NEGATIVE (NEGATIVE); COCAINE POSITIVE (NEGATIVE); METHADONE NEGATIVE (NEGATIVE); OXCYCODONE NEGATIVE (NEGATIVE); TETRAHYDROCANNABIONOL NEGATIVE (NEGATIVE); TRICYLIC ANTIDEPRESSANTS NEGATIVE (NEGATIVE)
[2018-12-28 00:55] LABS: URINE WBC 0-2 WBC/hpf (0-5)
[2018-12-28] MEDS ORDERED: TESSALON PER100 MG PO (00:57)
[2018-12-28] MEDS ORDERED: AMARYL2 MG PO (00:57)
[2018-12-28 06:36] VITALS: BP 161/71
== END 2018-12-28 06:25 | disposition home or self-care (01) ==
LOC: ED 21:30
PROVIDERS: Family Medicine
DX: B34.9 Viral infection, unspecified (principal); M62.82 Rhabdomyolysis; E11.9 Type 2 diabetes mellitus without complications; I10 Essential (primary) hypertension; F17.200 Nicotine dependence, unspecified, uncomplicated; Z86.73 Personal history of transient ischemic attack (TIA), and cerebral infarction without residual deficits

== ENCOUNTER 2019-02-18 09:32 | Day surgery (SDC) | payer OTHER ==
[2019-02-18] VITALS (9 sets, daily range): BP systolic 153–191; BP diastolic 81–98
[~2019-02-18] VITALS: Ht 172.7 cm; Wt 90.0 kg
[~2019-02-18 09:32] MED LIST changes: +CLONIDINE0.1 MG PO; +HYDRALAZINE50 MG PO; +LASIX40 MG PO; +METFORMIN500 M1 PO; +NORVASC PO; +SODIUM BICARBI650 MG PO; +SPIRONOLACTONE25 MG PO; +TAMSULOSIN HCL0.4 MG PO; +TESSALON PER100 MG PO; +VITAMIN D50000 UNIT PO
[2019-02-19 03:29] VITALS: BP 138/81
[2019-02-19 07:38] VITALS: BP 155/78
[2019-02-19 09:06] VITALS: BP 155/78
== END 2019-02-19 14:52 | disposition home or self-care (01) ==
LOC: ORM 09:32 → MS2 13:43 → ORM 02-19 14:52
PROVIDERS: ATTEND Surgery
DX: I12.0 Hypertensive chronic kidney disease with stage 5 chronic kidney disease or end stage renal disease (principal); E11.22 Type 2 diabetes mellitus with diabetic chronic kidney disease; N18.6 End stage renal disease; F17.200 Nicotine dependence, unspecified, uncomplicated; D64.9 Anemia, unspecified; Z86.73 Personal history of transient ischemic attack (TIA), and cerebral infarction without residual deficits
CPT/HCPCS: J0131

== ENCOUNTER 2019-03-06 03:40 | Emergency (ER) | payer OTHER ==
[~2019-03-06] VITALS: Ht 172.7 cm; Wt 81.8 kg
[2019-03-06 04:28] LABS: HEMATOCRIT 31.2 % (39.0-50.0); HEMOGLOBIN 10.5 g/dl (14.0-18.0); IMMATURE GRANULOCYTES 0.5 % (0.0-5.0); MEAN CELL VOLUME 92.6 fL CALC (80.0-100.0); MEAN CORPUSCULAR HGB 31.2 pG CALC (26.0-32.0); MEAN CORPUSCULAR HGB CONC 33.7 g/L CALC (32.0-36.0); NEUT# 8.04 thou/uL (1.82-7.42); RED BLOOD COUNT 3.37 mill/uL (4.70-6.10); RED CELL DISTRI WIDTH 15.6 % (11.5-15.5)
[2019-03-06 04:55] LABS: ALBUMIN 2.4 g/dL (3.2-5.0); BILIRUBIN, TOTAL 0.2 mg/dL (0.0-1.4); POTASSIUM 3.7 mmol/l (3.5-5.1); TOTAL PROTEIN 5.5 g/dL (6.3-8.2)
[2019-03-06] MEDS ORDERED: Levaquin PO (06:47)
[2019-03-06 07:18] VITALS: BP 163/84
== END 2019-03-06 07:25 | disposition home or self-care (01) ==
LOC: ED 03:40
PROVIDERS: Family Medicine
DX: J20.9 Acute bronchitis, unspecified (principal); E87.70 Fluid overload, unspecified; E11.22 Type 2 diabetes mellitus with diabetic chronic kidney disease; I12.0 Hypertensive chronic kidney disease with stage 5 chronic kidney disease or end stage renal disease; N18.6 End stage renal disease; Z99.2 Dependence on renal dialysis; Z79.84 Long term (current) use of oral hypoglycemic drugs

== ENCOUNTER 2019-03-10 06:13 | Emergency (ER) | payer OTHER ==
[~2019-03-10] VITALS: Ht 172.7 cm; Wt 81.8 kg
[~2019-03-10 06:13] MED LIST changes: +Levaquin PO
--- NOTE | 2019-03-10 06:51 | NUR ---
RECEIVED PT ON ROOM AIR SPO2 87% ABG ORDERED. PT REMAINED ON ROOMAIR UNTIL ABG RESULTS. PO2 53. PT PLACED ON 3LNC. SPO2 96%
[2019-03-10 06:55] LABS: HEMATOCRIT 33.1 % (39.0-50.0); HEMOGLOBIN 11.2 g/dl (14.0-18.0); IMMATURE GRANULOCYTES 0.5 % (0.0-5.0); MEAN CELL VOLUME 90.9 fL CALC (80.0-100.0); MEAN CORPUSCULAR HGB 30.8 pG CALC (26.0-32.0); MEAN CORPUSCULAR HGB CONC 33.8 g/L CALC (32.0-36.0); NEUT# 8.75 thou/uL (1.82-7.42); RED BLOOD COUNT 3.64 mill/uL (4.70-6.10); RED CELL DISTRI WIDTH 15.3 % (11.5-15.5)
[2019-03-10 07:09] LABS: ALBUMIN 2.8 g/dL (3.2-5.0); POTASSIUM 3.3 mmol/l (3.5-5.1); TOTAL PROTEIN 6.4 g/dL (6.3-8.2)
[2019-03-10 07:14] LABS: BILIRUBIN, TOTAL 0.5 mg/dL (0.0-1.4)
[2019-03-10] MEDS ORDERED: GLIPIZIDE5 MG PO (08:11)
[2019-03-10] MEDS ORDERED: ISOSORB DIN20 MG PO (08:11)
[2019-03-10 09:45] VITALS: BP 148/77
== END 2019-03-10 09:50 ==
LOC: ED 06:13
DX: I13.2 Hypertensive heart and chronic kidney disease with heart failure and with stage 5 chronic kidney disease, or end stage renal disease (principal); I50.9 Heart failure, unspecified; J96.01 Acute respiratory failure with hypoxia; J18.9 Pneumonia, unspecified organism; E11.22 Type 2 diabetes mellitus with diabetic chronic kidney disease; N18.6 End stage renal disease; T36.8X6A Underdosing of other systemic antibiotics, initial encounter; Z99.2 Dependence on renal dialysis; Z79.84 Long term (current) use of oral hypoglycemic drugs; Z91.128 Patient's intentional underdosing of medication regimen for other reason

== ENCOUNTER 2019-03-26 | Emergency (ER) | payer OTHER ==
[~2019-03-26] MED LIST changes: +GLIPIZIDE5 MG PO; +ISOSORB DIN20 MG PO
[2019-03-26] MEDS ORDERED: GABAPENTIN300 M2 PO (11:20)
[2019-03-26] MEDS ORDERED: TAMSULOSIN HCL0.4 MG PO (11:21)
[2019-03-26] MEDS ORDERED: LOPRESSOR50 M2 PO (11:22)
[2019-03-26 12:13] LABS: HEMATOCRIT 33.4 % (39.0-50.0); HEMOGLOBIN 11.1 g/dl (14.0-18.0); IMMATURE GRANULOCYTES 0.6 % (0.0-5.0); MEAN CORPUSCULAR HGB 30.9 pG CALC (26.0-32.0); MEAN CORPUSCULAR HGB CONC 33.2 g/L CALC (32.0-36.0); NEUT# 9.58 thou/uL (1.82-7.42); RED BLOOD COUNT 3.59 mill/uL (4.70-6.10); RED CELL DISTRI WIDTH 15.3 % (11.5-15.5)
[2019-03-26 12:58] LABS: ALBUMIN 2.5 g/dL (3.2-5.0); CREATININE 3.6 mg/dL (0.7-1.3); POTASSIUM 3.7 mmol/l (3.5-5.1); TOTAL PROTEIN 5.8 g/dL (6.3-8.2)
[2019-03-26 13:07] LABS: BILIRUBIN, TOTAL 0.2 mg/dL (0.0-1.4)
== END 2019-03-26 15:26 ==
PROVIDERS: Family Medicine
DX: J18.9 Pneumonia, unspecified organism (principal); E87.70 Fluid overload, unspecified; E11.22 Type 2 diabetes mellitus with diabetic chronic kidney disease; I12.0 Hypertensive chronic kidney disease with stage 5 chronic kidney disease or end stage renal disease; N18.6 End stage renal disease; Z99.2 Dependence on renal dialysis; Z79.84 Long term (current) use of oral hypoglycemic drugs
CPT/HCPCS: J0692

== ENCOUNTER 2019-04-06 | Emergency (ER) | payer OTHER ==
[~2019-04-06] MED LIST changes: +GABAPENTIN300 M2 PO; +LOPRESSOR50 M2 PO
[2019-04-06 01:32] LABS: HEMATOCRIT 33.3 % (39.0-50.0); HEMOGLOBIN 11.2 g/dl (14.0-18.0); IMMATURE GRANULOCYTES 0.3 % (0.0-5.0); MEAN CELL VOLUME 92.8 fL CALC (80.0-100.0); MEAN CORPUSCULAR HGB 31.2 pG CALC (26.0-32.0); MEAN CORPUSCULAR HGB CONC 33.6 g/L CALC (32.0-36.0); NEUT# 6.78 thou/uL (1.82-7.42); RED BLOOD COUNT 3.59 mill/uL (4.70-6.10); RED CELL DISTRI WIDTH 15.4 % (11.5-15.5)
[2019-04-06 01:50] LABS: ALBUMIN 2.8 g/dL (3.2-5.0); POTASSIUM 4.1 mmol/l (3.5-5.1); TOTAL PROTEIN 6.3 g/dL (6.3-8.2)
[2019-04-06 02:03] LABS: BILIRUBIN, TOTAL 0.3 mg/dL (0.0-1.4); CREATININE 5.7 mg/dL (0.7-1.3)
== END 2019-04-06 02:55 | disposition home or self-care (01) ==
PROVIDERS: Family Medicine
DX: E87.70 Fluid overload, unspecified (principal); I12.0 Hypertensive chronic kidney disease with stage 5 chronic kidney disease or end stage renal disease; E11.22 Type 2 diabetes mellitus with diabetic chronic kidney disease; N18.6 End stage renal disease; Z99.2 Dependence on renal dialysis; Z79.84 Long term (current) use of oral hypoglycemic drugs; Z86.73 Personal history of transient ischemic attack (TIA), and cerebral infarction without residual deficits

== ENCOUNTER 2019-05-05 | Emergency (ER) | payer OTHER ==
[2019-05-05 02:03] LABS: HEMATOCRIT 30.2 % (39.0-50.0); HEMOGLOBIN 10.2 g/dl (14.0-18.0); IMMATURE GRANULOCYTES 0.4 % (0.0-5.0); MEAN CORPUSCULAR HGB 30.7 pG CALC (26.0-32.0); MEAN CORPUSCULAR HGB CONC 33.8 g/L CALC (32.0-36.0); NEUT# 5.89 thou/uL (1.82-7.42); RED BLOOD COUNT 3.32 mill/uL (4.70-6.10); RED CELL DISTRI WIDTH 15.2 % (11.5-15.5)
[2019-05-05 02:17] LABS: ALBUMIN 3.1 g/dL (3.2-5.0); BILIRUBIN, TOTAL 0.3 mg/dL (0.0-1.4); POTASSIUM 3.9 mmol/l (3.5-5.1); TOTAL PROTEIN 6.8 g/dL (6.3-8.2)
[2019-05-05 02:41] LABS: CREATININE 3.7 mg/dL (0.7-1.3)
== END 2019-05-05 06:00 ==
DX: I16.0 Hypertensive urgency (principal); I13.2 Hypertensive heart and chronic kidney disease with heart failure and with stage 5 chronic kidney disease, or end stage renal disease; E11.22 Type 2 diabetes mellitus with diabetic chronic kidney disease; I50.9 Heart failure, unspecified; N18.6 End stage renal disease; Z99.2 Dependence on renal dialysis; Z79.84 Long term (current) use of oral hypoglycemic drugs; Z86.73 Personal history of transient ischemic attack (TIA), and cerebral infarction without residual deficits; R06.02 Shortness of breath

== ENCOUNTER 2019-05-15 | Emergency (ER) | payer OTHER ==
[2019-05-15] MEDS ORDERED: TORADOL PO (04:49)
== END 2019-05-15 07:27 | disposition home or self-care (01) ==
DX: R07.89 Other chest pain (principal); E11.22 Type 2 diabetes mellitus with diabetic chronic kidney disease; I12.0 Hypertensive chronic kidney disease with stage 5 chronic kidney disease or end stage renal disease; N18.6 End stage renal disease; Z99.2 Dependence on renal dialysis; Z86.73 Personal history of transient ischemic attack (TIA), and cerebral infarction without residual deficits; Z79.84 Long term (current) use of oral hypoglycemic drugs

== ENCOUNTER 2019-06-03 | Emergency (ER) | payer OTHER ==
[~2019-06-03] MED LIST changes: +TORADOL PO
[2019-06-03 15:28] LABS: HEMOGLOBIN 11.2 g/dl (14.0-18.0); IMMATURE GRANULOCYTES 0.5 % (0.0-5.0); MEAN CELL VOLUME 89.7 fL CALC (80.0-100.0); MEAN CORPUSCULAR HGB 30.4 pG CALC (26.0-32.0); MEAN CORPUSCULAR HGB CONC 33.9 g/dL CAL (32.0-36.0); NEUT# 8.31 thou/uL (1.82-7.42); RED BLOOD COUNT 3.68 mill/uL (4.70-6.10); RED CELL DISTRI WIDTH 14.5 % (11.5-15.5)
[2019-06-03 15:52] LABS: ALBUMIN 3.5 g/dL (3.2-5.0); BILIRUBIN, TOTAL 0.4 mg/dL (0.0-1.4); CREATININE 3.9 mg/dL (0.7-1.3); POTASSIUM 3.8 mmol/l (3.5-5.1); TOTAL PROTEIN 7.2 g/dL (6.3-8.2)
== END 2019-06-03 17:00 | disposition home or self-care (01) ==
PROVIDERS: Family Medicine
DX: R11.2 Nausea with vomiting, unspecified (principal); I12.0 Hypertensive chronic kidney disease with stage 5 chronic kidney disease or end stage renal disease; E11.22 Type 2 diabetes mellitus with diabetic chronic kidney disease; N18.6 End stage renal disease; Z99.2 Dependence on renal dialysis; Z79.84 Long term (current) use of oral hypoglycemic drugs; Z86.73 Personal history of transient ischemic attack (TIA), and cerebral infarction without residual deficits
CPT/HCPCS: S0164

== ENCOUNTER 2019-07-16 | Emergency (ER) | payer OTHER ==
[2019-07-16] MEDS ORDERED: PHOSLO667 M1 PO (13:13)
[2019-07-16] MEDS ORDERED: HYDRALAZINE HC100 MG PO (13:14)
[2019-07-16] MEDS ORDERED: NIFEDIPINE ER90 M1 PO (13:15)
[2019-07-16] MEDS ORDERED: COZAAR50 MG PO (13:15)
[2019-07-16] MEDS ORDERED: KETOROLAC10 MG PO (13:16)
[2019-07-16] MEDS ORDERED: LASIX 40 MG TAB40 MG PO (13:16)
[2019-07-16 13:41] LABS: HEMATOCRIT 31.7 % (39.0-50.0); HEMOGLOBIN 10.8 g/dl (14.0-18.0); IMMATURE GRANULOCYTES 0.4 % (0.0-5.0); MEAN CELL VOLUME 90.3 fL CALC (80.0-100.0); MEAN CORPUSCULAR HGB 30.8 pG CALC (26.0-32.0); MEAN CORPUSCULAR HGB CONC 34.1 g/dL CAL (32.0-36.0); NEUT# 6.73 thou/uL (1.82-7.42); RED BLOOD COUNT 3.51 mill/uL (4.70-6.10); RED CELL DISTRI WIDTH 14.7 % (11.5-15.5)
[2019-07-16 14:03] LABS: ACT PARTIAL THROMBO TIME 26.6 SECONDS (20.0-32.5); PROTHROMBIN TIME 10.1 SECONDS (9.0-12.5)
[2019-07-16 14:04] LABS: ALBUMIN 3.8 g/dL (3.2-5.0); POTASSIUM 3.9 mmol/l (3.5-5.1); TOTAL PROTEIN 7.2 g/dL (6.3-8.2)
[2019-07-16 14:06] LABS: BILIRUBIN, TOTAL 0.6 mg/dL (0.0-1.4); MAGNESIUM 1.9 mg/dL (1.6-2.3)
[2019-07-16 14:07] LABS: CREATININE 5.2 mg/dL (0.7-1.3)
[2019-07-16 16:00] LABS: BARBITURATES NEGATIVE (NEGATIVE); COCAINE POSITIVE (NEGATIVE); METHADONE NEGATIVE (NEGATIVE); OXCYCODONE NEGATIVE (NEGATIVE); TETRAHYDROCANNABIONOL NEGATIVE (NEGATIVE); TRICYLIC ANTIDEPRESSANTS NEGATIVE (NEGATIVE)
== END 2019-07-16 16:18 ==
DX: G45.9 Transient cerebral ischemic attack, unspecified (principal); E11.22 Type 2 diabetes mellitus with diabetic chronic kidney disease; I12.0 Hypertensive chronic kidney disease with stage 5 chronic kidney disease or end stage renal disease; N18.6 End stage renal disease; Z99.2 Dependence on renal dialysis; I69.954 Hemiplegia and hemiparesis following unspecified cerebrovascular disease affecting left non-dominant side; Z79.84 Long term (current) use of oral hypoglycemic drugs

== ENCOUNTER 2019-12-30 15:04 | Emergency (ER) | payer OTHER ==
[~2019-12-30] VITALS: Ht 172.7 cm; Wt 90.0 kg
[~2019-12-30 15:04] MED LIST changes: +COZAAR50 MG PO; +HYDRALAZINE HC100 MG PO; +KETOROLAC10 MG PO; +LASIX 40 MG TAB40 MG PO; +NIFEDIPINE ER90 M1 PO; +PHOSLO667 M1 PO
[2019-12-30] MEDS ORDERED: GLIMEPIRIDE4 MG PO (15:37)
[2019-12-30 15:51] LABS: HEMOGLOBIN 12.1 g/dl (14.0-18.0); IMMATURE GRANULOCYTES 0.4 % (0.0-5.0); MEAN CELL VOLUME 97.9 fL CALC (80.0-100.0); MEAN CORPUSCULAR HGB 31.2 pG CALC (26.0-32.0); MEAN CORPUSCULAR HGB CONC 31.8 g/dL CAL (32.0-36.0); NEUT# 5.73 thou/uL (1.82-7.42); RED BLOOD COUNT 3.88 mill/uL (4.70-6.10); RED CELL DISTRI WIDTH 14.9 % (11.5-15.5)
[2019-12-30 16:03] LABS: URINE BLOOD DIPSTICK TRACE-INTACT (NEGATIVE); URINE COLOR YELLOW; URINE GLUCOSE - DIPSTICK 250 mg/dL (NEGATIVE); URINE KETONE TRACE mg/dL (NEGATIVE); URINE LEUK ESTERASE NEGATIVE (NEGATIVE); URINE NITRITE - DIPSTICK NEGATIVE (Negative); URINE PH 7.5 (4.5-8.0); URINE PROTEIN - DIPSTICK >=300 mg/dL (NEG-TRACE); URINE UROBILINOGEN - DIPSTICK 0.2 E.U./dL (0.2)
[2019-12-30 16:12] LABS: URINE BILIRUBIN - DIPSTICK NEGATIVE (NEGATIVE)
[2019-12-30 16:16] LABS: ALBUMIN 4.4 g/dL (3.2-5.0); BILIRUBIN, TOTAL 0.8 mg/dL (0.0-1.4)
[2019-12-30 16:17] LABS: TOTAL PROTEIN 8.7 g/dL (6.3-8.2)
[2019-12-30 16:20] LABS: URINE WBC 0-2 WBC/hpf (0-5)
[2019-12-30 17:19] VITALS: BP 177/91
== END 2019-12-30 17:26 | disposition home or self-care (01) ==
LOC: ED 15:04
PROVIDERS: Emergency Medicine
DX: I12.0 Hypertensive chronic kidney disease with stage 5 chronic kidney disease or end stage renal disease (principal); E11.22 Type 2 diabetes mellitus with diabetic chronic kidney disease; N18.6 End stage renal disease; B19.20 Unspecified viral hepatitis C without hepatic coma; Z99.2 Dependence on renal dialysis; Z79.84 Long term (current) use of oral hypoglycemic drugs; Z86.73 Personal history of transient ischemic attack (TIA), and cerebral infarction without residual deficits

== ENCOUNTER → 2020-03-20 | Emergency (ER) | payer MEDICARE, OTHER ==
[~2020-03-20] VITALS: Ht 172.7 cm; Wt 73.9 kg
[~2020-03-20] MED LIST changes: +ASPIRIN ENTERIC81 MG PO; +CLONIDINE0.3 MG/21 TD
[2020-03-20 17:39] LABS: HEMATOCRIT 36.8 % (39.0-50.0); HEMOGLOBIN 12.3 g/dl (14.0-18.0); IMMATURE GRANULOCYTES 0.5 % (0.0-5.0); MEAN CELL VOLUME 95.8 fL CALC (80.0-100.0); MEAN CORPUSCULAR HGB CONC 33.4 g/dL CAL (32.0-36.0); NEUT# 5.3 thou/uL (1.82-7.42); RED BLOOD COUNT 3.84 mill/uL (4.70-6.10); RED CELL DISTRI WIDTH 15.9 % (11.5-15.5)
[2020-03-20 17:54] LABS: ALBUMIN 4.8 g/dL (3.2-5.0); BILIRUBIN, TOTAL 0.7 mg/dL (0.0-1.4); POTASSIUM 4.4 mmol/l (3.5-5.1); TOTAL PROTEIN 9.6 g/dL (6.3-8.2)
[2020-03-20 17:56] LABS: CREATININE 6.4 mg/dL (0.7-1.3)
[2020-03-20 21:52] VITALS: BP 122/74
== END | disposition short-term general hospital (02) ==
LOC: ED 16:31
PROVIDERS: Emergency Medicine
DX: J18.9 Pneumonia, unspecified organism (principal); J91.8 Pleural effusion in other conditions classified elsewhere; R79.89 Other specified abnormal findings of blood chemistry; E11.22 Type 2 diabetes mellitus with diabetic chronic kidney disease; I12.0 Hypertensive chronic kidney disease with stage 5 chronic kidney disease or end stage renal disease; N18.6 End stage renal disease; B19.20 Unspecified viral hepatitis C without hepatic coma; Z99.2 Dependence on renal dialysis; Z86.73 Personal history of transient ischemic attack (TIA), and cerebral infarction without residual deficits; Z79.84 Long term (current) use of oral hypoglycemic drugs; Z20.822 Contact with and (suspected) exposure to COVID-19

== ENCOUNTER 2020-05-15 23:06 | Emergency (ER) | payer MEDICARE, OTHER ==
[~2020-05-15] VITALS: Ht 172.7 cm; Wt 68.2 kg
[2020-05-15 23:36] LABS: HEMATOCRIT 35.4 % (39.0-50.0); HEMOGLOBIN 11.7 g/dl (14.0-18.0); IMMATURE GRANULOCYTES 0.4 % (0.0-5.0); MEAN CELL VOLUME 96.5 fL CALC (80.0-100.0); MEAN CORPUSCULAR HGB 31.9 pG CALC (26.0-32.0); MEAN CORPUSCULAR HGB CONC 33.1 g/dL CAL (32.0-36.0); NEUT# 10.53 thou/uL (1.82-7.42); RED BLOOD COUNT 3.67 mill/uL (4.70-6.10); RED CELL DISTRI WIDTH 14.3 % (11.5-15.5)
[2020-05-15 23:53] LABS: ALBUMIN 4.6 g/dL (3.2-5.0); POTASSIUM 4.4 mmol/l (3.5-5.1)
[2020-05-15 23:58] LABS: BILIRUBIN, TOTAL 1.1 mg/dL (0.0-1.4); CREATININE 7.7 mg/dL (0.7-1.3)
[2020-05-16 05:45] VITALS: BP 177/81
== END 2020-05-16 05:45 | disposition short-term general hospital (02) ==
LOC: ED 23:06
PROVIDERS: Family Medicine
DX: E87.70 Fluid overload, unspecified (principal); E11.22 Type 2 diabetes mellitus with diabetic chronic kidney disease; I12.0 Hypertensive chronic kidney disease with stage 5 chronic kidney disease or end stage renal disease; N18.6 End stage renal disease; B19.20 Unspecified viral hepatitis C without hepatic coma; Z99.2 Dependence on renal dialysis; Z79.84 Long term (current) use of oral hypoglycemic drugs; Z86.73 Personal history of transient ischemic attack (TIA), and cerebral infarction without residual deficits; Z20.822 Contact with and (suspected) exposure to COVID-19

== ENCOUNTER 2020-06-27 02:21 | Emergency (ER) | payer MEDICARE, OTHER ==
[2020-06-27] MEDS ORDERED: METOPROLOL100 M1 PO (02:59)
[2020-06-27] MEDS ORDERED: ATORVASTATIN CA40 MG PO (03:00)
[2020-06-27 03:02] LABS: HEMATOCRIT 36.2 % (39.0-50.0); HEMOGLOBIN 11.7 g/dl (14.0-18.0); IMMATURE GRANULOCYTES 0.7 % (0.0-5.0); MEAN CELL VOLUME 96.3 fL CALC (80.0-100.0); MEAN CORPUSCULAR HGB 31.1 pG CALC (26.0-32.0); MEAN CORPUSCULAR HGB CONC 32.3 g/dL CAL (32.0-36.0); NEUT# 8.18 thou/uL (1.82-7.42); RED BLOOD COUNT 3.76 mill/uL (4.70-6.10); RED CELL DISTRI WIDTH 15.5 % (11.5-15.5)
[2020-06-27] MEDS ORDERED: ISOSORB MONO20 MG PO (03:02)
[2020-06-27] MEDS ORDERED: BUMETANIDE1 MG PO (03:03)
[2020-06-27 03:05] LABS: ALBUMIN 4.7 g/dL (3.2-5.0); BILIRUBIN, TOTAL 0.7 mg/dL (0.0-1.4); TOTAL PROTEIN 9.5 g/dL (6.3-8.2)
[2020-06-27] MEDS ORDERED: HYDRALAZINE50 MG PO (03:07)
[2020-06-27 03:11] LABS: ACT PARTIAL THROMBO TIME 25.9 SECONDS (20.0-32.5); PROTHROMBIN TIME 10.6 SECONDS (9.0-12.5)
[2020-06-27 03:17] LABS: CREATININE 8.1 mg/dL (0.7-1.3); MAGNESIUM 2.6 mg/dL (1.6-2.3); POTASSIUM 6.7 mmol/l (3.5-5.1)
[2020-06-27 07:16] VITALS: BP 140/66
== END 2020-06-27 08:06 | disposition home or self-care (01) ==
LOC: ED 02:21
PROVIDERS: Family Medicine
DX: E87.70 Fluid overload, unspecified (principal); E87.5 Hyperkalemia; E11.22 Type 2 diabetes mellitus with diabetic chronic kidney disease; I12.0 Hypertensive chronic kidney disease with stage 5 chronic kidney disease or end stage renal disease; N18.6 End stage renal disease; B19.20 Unspecified viral hepatitis C without hepatic coma; Z99.2 Dependence on renal dialysis; Z79.84 Long term (current) use of oral hypoglycemic drugs; Z86.73 Personal history of transient ischemic attack (TIA), and cerebral infarction without residual deficits

== ENCOUNTER 2020-07-17 00:06 | Emergency (ER) | payer MEDICARE, OTHER ==
[~2020-07-17 00:06] MED LIST changes: +ATORVASTATIN CA40 MG PO; +BUMETANIDE1 MG PO; +ISOSORB MONO20 MG PO; +METOPROLOL100 M1 PO
[2020-07-17 01:25] LABS: HEMATOCRIT 34.2 % (39.0-50.0); HEMOGLOBIN 11.4 g/dl (14.0-18.0); IMMATURE GRANULOCYTES 0.3 % (0.0-5.0); MEAN CELL VOLUME 94.7 fL CALC (80.0-100.0); MEAN CORPUSCULAR HGB 31.6 pG CALC (26.0-32.0); MEAN CORPUSCULAR HGB CONC 33.3 g/dL CAL (32.0-36.0); NEUT# 7.36 thou/uL (1.82-7.42); RED BLOOD COUNT 3.61 mill/uL (4.70-6.10); RED CELL DISTRI WIDTH 14.9 % (11.5-15.5)
[2020-07-17 01:37] LABS: ALBUMIN 4.4 g/dL (3.2-5.0); BILIRUBIN, TOTAL 0.7 mg/dL (0.0-1.4); TOTAL PROTEIN 8.8 g/dL (6.3-8.2)
[2020-07-17 01:41] LABS: CREATININE 9.8 mg/dL (0.7-1.3); POTASSIUM 7.1 mmol/l (3.5-5.1)
[2020-07-17 04:06] VITALS: BP 144/82
== END 2020-07-17 04:07 | disposition short-term general hospital (02) ==
LOC: ED 00:06
PROVIDERS: Emergency Medicine
DX: E87.70 Fluid overload, unspecified (principal); E87.5 Hyperkalemia; I12.0 Hypertensive chronic kidney disease with stage 5 chronic kidney disease or end stage renal disease; E11.22 Type 2 diabetes mellitus with diabetic chronic kidney disease; N18.6 End stage renal disease; B19.20 Unspecified viral hepatitis C without hepatic coma; Z99.2 Dependence on renal dialysis; Z91.15 Patient's noncompliance with renal dialysis; Z79.84 Long term (current) use of oral hypoglycemic drugs; Z20.822 Contact with and (suspected) exposure to COVID-19

== ENCOUNTER 2020-07-29 16:11 | Observation (INO) | payer MEDICARE, OTHER ==
[~2020-07-29] VITALS: Ht 172.7 cm; Wt 77.0 kg
[2020-07-29] VITALS (8 sets, daily range): BP systolic 135–172; BP diastolic 64–81
--- NOTE | 2020-07-29 16:15 | NUR ---
PATIENT TO ROM VIA EMS. EMS REPORTED PATIENT TOOK 4 DOSES OF O.1MG CLONIDINE AT DIALYSIS CENTER AND HAS CLONIDINE PATCH ON LEFT UPPER ARM. MD AT BEDSIDE FOR EVAL. PATIENT RECIEVED FULL DIALYSIS TREATMENT TODAY
[2020-07-29 16:46] LABS: HEMATOCRIT 32.4 % (39.0-50.0); HEMOGLOBIN 10.8 g/dl (14.0-18.0); IMMATURE GRANULOCYTES 0.6 % (0.0-5.0); MEAN CELL VOLUME 94.7 fL CALC (80.0-100.0); MEAN CORPUSCULAR HGB 31.6 pG CALC (26.0-32.0); MEAN CORPUSCULAR HGB CONC 33.3 g/dL CAL (32.0-36.0); NEUT# 5.64 thou/uL (1.82-7.42); RED BLOOD COUNT 3.42 mill/uL (4.70-6.10); RED CELL DISTRI WIDTH 14.9 % (11.5-15.5)
--- NOTE | 2020-07-29 17:00 | NUR ---
ANSON GARCIA INITIATED OER PROTOCOL FOR BP 206/98 HR 62. PT TOLERATED WELL
[2020-07-29 17:05] LABS: ALBUMIN 3.9 g/dL (3.2-5.0); BILIRUBIN, TOTAL 0.8 mg/dL (0.0-1.4); TOTAL PROTEIN 8.6 g/dL (6.3-8.2)
[2020-07-29 17:08] LABS: CREATININE 3.5 mg/dL (0.7-1.3); POTASSIUM 3.9 mmol/l (3.5-5.1)
--- NOTE | 2020-07-29 18:09 | NUR ---
MD AT BEDSIDE TO DISCUSS RESULTS AND POC.
[2020-07-29] MEDS ORDERED: GLIPIZIDE ER5 MG PO (18:10)
--- NOTE | 2020-07-29 18:35 | NUR ---
COVID SWAB COLLECTED, ISOLATION PRECAUTIONS INITIATED.
--- NOTE | 2020-07-29 18:50 | NUR ---
ANSON GARCIA HELD PER MD FOR BP 143/69 HR 57.
--- NOTE | 2020-07-29 19:34 | NUR ---
REPORT CALLED TO CARLOS CHEATHAM
--- NOTE | 2020-07-29 19:45 | NUR ---
TO ICU VIA STRETCHER
--- NOTE | 2020-07-29 19:55 | NUR ---
60 yr old niuean male admitted icu 7 per stretcher from er. amb self to bed. glove former shows sinus rhythm hr 61. #20 lac saline lock. history obtained per pt & er record. oriented to room. supper meal given. fall precautions initiated.
--- NOTE | 2020-07-29 22:00 | NUR ---
watching tv. no c/o voiced. cardiac specialist shows sinus rhythm hr 64.
[2020-07-30] VITALS (12 sets, daily range): BP systolic 157–195; BP diastolic 73–89
--- NOTE | 2020-07-30 00:01 | NUR ---
eyes closed. no distress. cardiac technician shows sins rhythm hr 60.
--- NOTE | 2020-07-30 02:00 | NUR ---
resting quietly. resps even & unlabored. telemetry monitor shows sinus rhythm hr 60.
--- NOTE | 2020-07-30 04:20 | NUR ---
lab here. blood drawn.
[2020-07-30 04:40] LABS: HEMOGLOBIN 12.5 g/dl (14.0-18.0); IMMATURE GRANULOCYTES 1.5 % (0.0-5.0); MEAN CELL VOLUME 97.3 fL CALC (80.0-100.0); MEAN CORPUSCULAR HGB 30.9 pG CALC (26.0-32.0); MEAN CORPUSCULAR HGB CONC 31.8 g/dL CAL (32.0-36.0); NEUT# 5.18 thou/uL (1.82-7.42); RED BLOOD COUNT 4.04 mill/uL (4.70-6.10); RED CELL DISTRI WIDTH 15.6 % (11.5-15.5)
[2020-07-30 04:41] LABS: HEMATOCRIT 39.3 % (39.0-50.0)
[2020-07-30 04:54] LABS: ALBUMIN 3.5 g/dL (3.2-5.0); BILIRUBIN, TOTAL 0.7 mg/dL (0.0-1.4); TOTAL PROTEIN 7.7 g/dL (6.3-8.2)
[2020-07-30 04:58] LABS: CREATININE 4.5 mg/dL (0.7-1.3)
[2020-07-30 04:59] LABS: POTASSIUM 5.2 mmol/l (3.5-5.1)
--- NOTE | 2020-07-30 05:37 | NUR ---
has not voided this shift.
--- NOTE | 2020-07-30 07:40 | NUR ---
PT REPORT RECEIVED FROM DENTAL PATIENT COORDINATOR, PT REQUESTING COFFEE, STATES HE IS HUNGARY. PT ALERT/ORIENTED X3, FEELS MUCH BETTER TODAY, DOES NOT FEEL WEAK/DIZZY. BECAME DIZZY DURING DIALYSIS YESTERDAY, HAS HAD PROBLEMS WITH BLOOD PRESSURE FOR YEARS AND IT IS ALWAYS HIGH. LIVES ALONE .
[2020-07-30] MEDS ORDERED: APRESOLINE25 MG/TAB PO (09:20)
--- NOTE | 2020-07-30 11:17 | NUR ---
PT STATES HE WANTS TO WAIT UNTIL AFTER LUNCH TO BE DISCHARGED. SOCIAL SCIENCE PROFESSOR NOTIFIED WE WILL NEED A TAXI FOR ROOM CLEANER. IV DISCONTINUED. PT ALERT/ORIENTED X3, DENIES ANY COMPLAINTS OF WEAKNESS/DIZZINESS. SITTING WATCHING TV.
--- NOTE | 2020-07-30 12:28 | NUR ---
PT DISCHARGED WITH INST. AND RX. W/C TO ER WAITING ROOM FOR TAXI.
== END 2020-07-30 12:30 | disposition home or self-care (01) ==
LOC: ED 16:11 → ED-I 18:04 → ED 18:18 → ICU 18:19
PROVIDERS: Family Medicine; ADMIT Internal Medicine; ATTEND Internal Medicine
DX: I16.0 Hypertensive urgency (principal); I12.9 Hypertensive chronic kidney disease with stage 1 through stage 4 chronic kidney disease, or unspecified chronic kidney disease; E11.22 Type 2 diabetes mellitus with diabetic chronic kidney disease; N18.4 Chronic kidney disease, stage 4 (severe); B19.20 Unspecified viral hepatitis C without hepatic coma; F17.200 Nicotine dependence, unspecified, uncomplicated; Z99.2 Dependence on renal dialysis; Z79.84 Long term (current) use of oral hypoglycemic drugs; Z86.73 Personal history of transient ischemic attack (TIA), and cerebral infarction without residual deficits; Z20.822 Contact with and (suspected) exposure to COVID-19

== ENCOUNTER 2020-08-03 15:22 | Emergency (ER) | payer MEDICARE, OTHER ==
[~2020-08-03] VITALS: Ht 172.7 cm; Wt 75.0 kg
[~2020-08-03 15:22] MED LIST changes: +APRESOLINE25 MG/TAB PO; +GLIPIZIDE ER5 MG PO
[2020-08-03 16:00] LABS: HEMATOCRIT 35.4 % (39.0-50.0); HEMOGLOBIN 11.9 g/dl (14.0-18.0); IMMATURE GRANULOCYTES 0.8 % (0.0-5.0); MEAN CELL VOLUME 94.1 fL CALC (80.0-100.0); MEAN CORPUSCULAR HGB 31.6 pG CALC (26.0-32.0); MEAN CORPUSCULAR HGB CONC 33.6 g/dL CAL (32.0-36.0); NEUT# 6.81 thou/uL (1.82-7.42); RED BLOOD COUNT 3.76 mill/uL (4.70-6.10); RED CELL DISTRI WIDTH 15.4 % (11.5-15.5)
[2020-08-03 16:13] LABS: ALBUMIN 4.2 g/dL (3.2-5.0); CREATININE 3.8 mg/dL (0.7-1.3)
[2020-08-03 16:15] LABS: ACT PARTIAL THROMBO TIME 26.3 SECONDS (20.0-32.5); PROTHROMBIN TIME 12.8 SECONDS (9.0-12.5)
[2020-08-03 16:18] LABS: INTERNATIONAL NORMALIZED RATIO 1.3 RATIO (0.7-1.3); POTASSIUM 3.7 mmol/l (3.5-5.1); TOTAL PROTEIN 9.3 g/dL (6.3-8.2)
[2020-08-03 19:06] VITALS: BP 198/90
== END 2020-08-03 19:14 | disposition home or self-care (01) ==
LOC: ED 15:22
DX: I12.0 Hypertensive chronic kidney disease with stage 5 chronic kidney disease or end stage renal disease (principal); E11.22 Type 2 diabetes mellitus with diabetic chronic kidney disease; N18.6 End stage renal disease; B19.20 Unspecified viral hepatitis C without hepatic coma; Z99.2 Dependence on renal dialysis; Z79.84 Long term (current) use of oral hypoglycemic drugs; Z86.73 Personal history of transient ischemic attack (TIA), and cerebral infarction without residual deficits

== ENCOUNTER 2020-08-05 12:05 | Emergency (ER) | payer MEDICARE, OTHER ==
[~2020-08-05] VITALS: Ht 172.7 cm; Wt 68.0 kg
[2020-08-05 13:57] LABS: BILIRUBIN, TOTAL 0.7 mg/dL (0.0-1.4); TOTAL PROTEIN 8.5 g/dL (6.3-8.2)
[2020-08-05 14:06] LABS: CREATININE 7.9 mg/dL (0.7-1.3); POTASSIUM 5.3 mmol/l (3.5-5.1)
[2020-08-05 14:21] VITALS: BP 185/87
[2020-08-05 14:35] LABS: HEMATOCRIT 37.6 % (39.0-50.0); HEMOGLOBIN 12.2 g/dl (14.0-18.0); IMMATURE GRANULOCYTES 0.7 % (0.0-5.0); MEAN CELL VOLUME 97.9 fL CALC (80.0-100.0); MEAN CORPUSCULAR HGB 31.8 pG CALC (26.0-32.0); MEAN CORPUSCULAR HGB CONC 32.4 g/dL CAL (32.0-36.0); NEUT# 8.47 thou/uL (1.82-7.42); RED BLOOD COUNT 3.84 mill/uL (4.70-6.10); RED CELL DISTRI WIDTH 16.3 % (11.5-15.5)
== END 2020-08-05 15:32 ==
LOC: ED 12:05
PROVIDERS: Emergency Medicine
DX: I12.0 Hypertensive chronic kidney disease with stage 5 chronic kidney disease or end stage renal disease (principal); E11.22 Type 2 diabetes mellitus with diabetic chronic kidney disease; N18.6 End stage renal disease; R74.8 Abnormal levels of other serum enzymes; B19.20 Unspecified viral hepatitis C without hepatic coma; Z99.2 Dependence on renal dialysis; Z79.84 Long term (current) use of oral hypoglycemic drugs; Z86.73 Personal history of transient ischemic attack (TIA), and cerebral infarction without residual deficits